=== PATIENT | male | born 1955 | race Caucasian/White ===

== ENCOUNTER 2016-06-23 14:24 | Inpatient (IN) | payer OTHER ==
[~2016-06-23] VITALS: Ht 182.9 cm; Wt 89.2 kg
[2016-06-23] MEDS ORDERED: SODIUM CHLORIDE FLUSH 10ML SYR IVF ONE (15:30)
[2016-06-23] MEDS ORDERED: LEVO75TA5 PO (15:44)
[2016-06-23] MEDS ORDERED: FLUO40CA9 PO (15:44)
[2016-06-23 15:47] LABS: HEMOGLOBIN 14.6 g/dL (13.7-18.0)
[2016-06-23 15:59] LABS: BLOOD UREA NITROGEN 11 mg/dL (7-18)
[2016-06-23 16:06] LABS: IS PT STATUS REG ER OR PRE ER? YES
[2016-06-23] MEDS ORDERED: NITROGLYCERIN 0.4 MG/SPRAY SL PRN (17:30)
[2016-06-23] MEDS ORDERED: MORPHINE SULFATE 4 MG/ML, 1ML IVPush PRN (17:30)
[2016-06-23] MEDS ORDERED: NITROGLYCERIN 0.4 MG BOTTLE (25 TABS) SL PRN (17:30)
[2016-06-23] MEDS ORDERED: ONDANSETRON ODT 4 MG PO PRN (17:30)
[2016-06-23] MEDS ORDERED: ONDANSETRON 2MG/ML, 2ML IVP PRN (17:30)
[2016-06-23] MEDS: ENOXAPARIN 40 MG/0.4 ML SQ SCH (18:07)
[2016-06-23 21:30] LABS: IS PT STATUS REG ER OR PRE ER? NO
[2016-06-24 02:55] VITALS: BP 127/75
[2016-06-24 04:01] LABS: HEMOGLOBIN 14.6 g/dL (13.7-18.0)
[2016-06-24 04:11] LABS: ASPARTATE AMINO TRANSFERASE 16 U/L (15-37); BLOOD UREA NITROGEN 12 mg/dL (7-18)
[2016-06-24 04:17] LABS: IS PT STATUS REG ER OR PRE ER? NO
[2016-06-24 05:02] VITALS: BP 149/82
[2016-06-24] MEDS: ASPIRIN 325 MG TABLET PO SCH (05:31)
[2016-06-24 07:00] VITALS: BP 134/73
[2016-06-24] MEDS: LEVOTHYROXINE 75 MCG TABLET PO SCH (08:08)
[2016-06-24] MEDS: FLUOXETINE 20 MG CAPSULE PO SCH (08:08)
[2016-06-24] MEDS ORDERED: REGADENOSON 0.4 MG/5 ML SYRINGE ONE (08:47)
[2016-06-24 14:16] VITALS: BP 130/70
[2016-06-24] MEDS: ACETAMINOPHEN 325 MG TABLET PO PRN (14:36)
[2016-06-24] MEDS: ENOXAPARIN 40 MG/0.4 ML SQ SCH (17:39)
[2016-06-24 19:45] VITALS: BP 111/62
[2016-06-24] MEDS ORDERED: ATORVASTATIN 20 MG TABLET PO SCH (21:00)
[2016-06-25 04:00] VITALS: BP 108/58
[2016-06-25] MEDS: ASPIRIN 325 MG TABLET PO SCH (05:52)
[2016-06-25 07:43] VITALS: BP 125/70
[2016-06-25] MEDS: FLUOXETINE 20 MG CAPSULE PO SCH (07:59)
[2016-06-25] MEDS: LEVOTHYROXINE 75 MCG TABLET PO SCH (07:59)
[2016-06-25] MEDS ORDERED: ASPI-621 PO (09:46)
[2016-06-25] MEDS ORDERED: NAPR500T3 PO (09:46)
[2016-06-25] MEDS: ACETAMINOPHEN 325 MG TABLET PO PRN (10:59)
== END 2016-06-25 14:01 | disposition home or self-care (01) | DRG 69 ==
LOC: ED 16:22 → EDIP 16:37 → 5SO 19:31
PROVIDERS: ADMIT Internal Medicine; ATTEND Internal Medicine
DX: G45.9 Transient cerebral ischemic attack, unspecified (principal); E87.1 Hypo-osmolality and hyponatremia; E03.9 Hypothyroidism, unspecified; F32.9 Major depressive disorder, single episode, unspecified; I10 Essential (primary) hypertension; R07.89 Other chest pain; E78.5 Hyperlipidemia, unspecified; F12.90 Cannabis use, unspecified, uncomplicated; Z72.0 Tobacco use; Z80.9 Family history of malignant neoplasm, unspecified; Z82.49 Family history of ischemic heart disease and other diseases of the circulatory system; Z90.49 Acquired absence of other specified parts of digestive tract; Z98.890 Other specified postprocedural states; Z79.899 Other long term (current) drug therapy
CPT/HCPCS: 36415; 70450; 71010; 78452; 80048; 80053; 80061; 82040; 84443; 84484; 85025; 85610; 85730; 93005; 93017; 93306; 93880; J1650; J2785; A9502; C9898

== ENCOUNTER 2018-01-26 15:35 | Inpatient (IN) | payer OTHER ==
[~2018-01-26] VITALS: Ht 181.6 cm; Wt 87.1 kg
[~2018-01-26 15:35] MED LIST: ASPI-621 PO; FLUO40CA9 PO; LEVO75TA5 PO; NAPR-685 PO
[2018-01-26] MEDS ORDERED: FENTANYL PF 100 MCG/2ML ONE (15:55)
[2018-01-26] MEDS ORDERED: HYDROmorphone 2 MG/ML, 1ML ONE ×2 (16:05→18:50)
[2018-01-26 16:30] LABS: BASOPHILS # (AUTO) 0.07 x10^3/uL (0-0.1); BASOPHILS % (AUTO) 1 % (0-1); EOSINOPHILS # (AUTO) 0.04 x10^3/uL (0-0.4); EOSINOPHILS % (AUTO) 0 % (1-7); LYMPHOCYTES # (AUTO) 1.69 x10^3/uL (1-3.4); LYMPHOCYTES % (AUTO) 12 % (22-44); MD NO; MEAN CORPUSCULAR HEMOGLOBIN 30.1 pg (27.5-34.5); MEAN CORPUSCULAR HGB CONC 33.6 g/dL (33.2-36.2); MEAN CORPUSCULAR VOLUME 89.6 fL (81-97); MEAN PLATELET VOLUME 8.2 fL (7.4-10.4); MONOCYTES # (AUTO) 0.81 x10^3/uL (0.2-0.8); MONOCYTES % (AUTO) 6 % (2-9); NEUTROPHILS # (AUTO) 11.87 x10^3/uL (1.8-6.8); NEUTROPHILS % (AUTO) 82 % (42-75); PLATELET COUNT 333 x10^3/uL (130-400); RED BLOOD COUNT 5.25 x10^6/uL (4.38-5.82); RED CELL DISTRIBUTION WIDTH 13.7 % (9.4-14.8)
[2018-01-26] MEDS ORDERED: HYDROmorphone 2 MG/ML, 1ML IVPush ONE ×2 (16:30→17:00)
[2018-01-26] MEDS ORDERED: FENTANYL PF 100 MCG/2ML IVPush ONE (16:30)
[2018-01-26] MEDS ORDERED: SODIUM CHLORIDE FLUSH 10ML SYR IVF ONE (16:30)
[2018-01-26 16:40] LABS: INTERNATIONAL NORMALIZED RATIO 1.02 (0.93-1.1); PROTHROMBIN TIME 10.5 Seconds (9.6-11.5)
[2018-01-26 16:42] LABS: ALANINE AMINOTRANSFERASE 26 U/L (12-78); ALBUMIN 3.8 g/dL (3.4-5.0); ANION GAP 11 mmol/L (5-15); CALCIUM 8.9 mg/dL (8.5-10.1); CHLORIDE 110 mmol/L (98-107)
[2018-01-26 16:45] LABS: ALKALINE PHOSPHATASE 104 U/L (45-117); BILIRUBIN,TOTAL 0.6 mg/dL (0.2-1.0); TOTAL PROTEIN 7.8 g/dL (6.4-8.2)
[2018-01-26] MEDS ORDERED: OMNIPAQUE 350 MG/ML, 100ML BOTTLE ONE (16:48)
[2018-01-26 18:05] VITALS: BP 142/84
[2018-01-26] MEDS: HYDROmorphone 2 MG/ML, 1ML IVPush PRN ×2 (18:53→22:02)
[2018-01-26] MEDS ORDERED: ONDANSETRON ODT 4 MG PO PRN (19:00)
[2018-01-26] MEDS ORDERED: TEMAZEPAM 15 MG CAPSULE PO PRN (19:00)
[2018-01-26] MEDS ORDERED: ACETAMINOPHEN 325 MG TABLET PO PRN (19:00)
[2018-01-26] MEDS ORDERED: HYDROmorphone 1 MG/ML, 1ML IV ONE (19:00)
[2018-01-26] MEDS ORDERED: DOCUSATE 100 MG CAPSULE PO PRN (19:00)
[2018-01-26] MEDS ORDERED: hydrALAzine 20 MG/ML, 1ML IVPush PRN (19:00)
[2018-01-26 19:02] VITALS: BP 144/88
[2018-01-26] MEDS: IBUPROFEN 600 MG TABLET PO PRN (20:16)
[2018-01-26] MEDS: PLEASE ENTER HEIGHT AND WEIGHT MC SCH (20:22)
[2018-01-26 20:45] VITALS: BP 142/84
[2018-01-27] MEDS: HYDROmorphone 2 MG/ML, 1ML IVPush PRN ×3 (01:11→09:06)
[2018-01-27 03:27] VITALS: BP 129/70
[2018-01-27] MEDS ORDERED: LEVOTHYROXINE 75 MCG TABLET PO SCH ×2 (06:00→09:00)
[2018-01-27 06:11] LABS: BASOPHILS # (AUTO) 0.07 x10^3/uL (0-0.1); BASOPHILS % (AUTO) 1 % (0-1); EOSINOPHILS # (AUTO) 0.16 x10^3/uL (0-0.4); EOSINOPHILS % (AUTO) 2 % (1-7); LYMPHOCYTES # (AUTO) 2.16 x10^3/uL (1-3.4); LYMPHOCYTES % (AUTO) 25 % (22-44); MD NO; MEAN CORPUSCULAR HEMOGLOBIN 31.2 pg (27.5-34.5); MEAN CORPUSCULAR HGB CONC 34.3 g/dL (33.2-36.2); MEAN CORPUSCULAR VOLUME 90.8 fL (81-97); MEAN PLATELET VOLUME 8.6 fL (7.4-10.4); MONOCYTES % (AUTO) 10 % (2-9); NEUTROPHILS # (AUTO) 5.48 x10^3/uL (1.8-6.8); NEUTROPHILS % (AUTO) 63 % (42-75); PLATELET COUNT 260 x10^3/uL (130-400); RED BLOOD COUNT 4.57 x10^6/uL (4.38-5.82); RED CELL DISTRIBUTION WIDTH 13.7 % (9.4-14.8)
[2018-01-27 06:35] VITALS: BP 119/73
[2018-01-27] MEDS: PLEASE ENTER HEIGHT AND WEIGHT MC SCH (08:00)
[2018-01-27] MEDS ORDERED: FLUOXETINE HCL 20 MG CAPSULE PO SCH (09:00)
[2018-01-27] MEDS: IBUPROFEN 600 MG TABLET PO PRN (12:14)
[2018-01-27] MEDS ORDERED: ACET-76 PO ×2 (13:50→13:54)
[2018-01-27 14:26] VITALS: BP 119/68
== END 2018-01-27 15:14 | disposition home or self-care (01) | DRG 552 ==
LOC: ED 17:15 → EDIP 17:16 → ED 17:53 → 3NE 18:03 → DCLOUNGE 01-27 15:02
PROVIDERS: ADMIT Family Medicine; ATTEND Family Medicine
DX: M50.31 Other cervical disc degeneration, high cervical region (principal); F33.9 Major depressive disorder, recurrent, unspecified; M54.9 Dorsalgia, unspecified; R07.81 Pleurodynia; E03.9 Hypothyroidism, unspecified; F17.200 Nicotine dependence, unspecified, uncomplicated; Z86.73 Personal history of transient ischemic attack (TIA), and cerebral infarction without residual deficits; Z82.49 Family history of ischemic heart disease and other diseases of the circulatory system; Z80.9 Family history of malignant neoplasm, unspecified; V84.5XXA Driver of special agricultural vehicle injured in nontraffic accident, initial encounter; Y93.89 Activity, other specified; Y92.89 Other specified places as the place of occurrence of the external cause
CPT/HCPCS: 36415; 70450; 71260; 72125; 74177; 80053; 85025; 85610; 86850; 86900; 93005; 96374; 96375; 96376; 99291; G0378; J1170; J3010; Q9967